=== PATIENT | female | born 1990 | race Caucasian/White ===

== ENCOUNTER 2021-02-02 16:01 | Outpatient (CLI) | payer OTHER, SELFPAY ==
--- NOTE | ~2021-02-02 | XR_ITS ---
XR chest 2V DATE: 02/02/2021 16:27 INDICATION: Occasional chest discomfort TECHNIQUE: PA and lateral views COMPARISON: None FINDINGS: Normal heart size. No hilar or mediastinal enlargement. No pulmonary infiltrate or consoli dation, pulmonary vascular congestion or pleural effusion or pneumothorax. IMPRESSION: Negative Reviewed, dictated and finalized at location B. IMPRESSION: Negative
== END 2021-02-02 16:02 | disposition home or self-care (01) ==
LOC: ANHIMG 16:09
PROVIDERS: PCP Emergency Medicine; Visit Provider Emergency Medicine
DX: Z72.0 Tobacco use (principal)
CPT/HCPCS: 71046

== ENCOUNTER 2022-02-22 12:21 | Outpatient (CLI) | payer OTHER, SELFPAY ==
--- NOTE | ~2022-02-22 | XR_ITS ---
XR chest 2V DATE: 02/22/2022 12:43 INDICATION: Smoking history TECHNIQUE: PA and lateral views COMPARISON: 02/02/2021 PA and lateral chest FINDINGS: Normal heart size. No hilar or mediastinal enlargement. Moderate bilateral hyperinflation. No pulmonary infiltrate or consolidation, pleural effusion or pulm onary vascular congestion or pneumothorax. Included skeletal structures are unremarkable. IMPRESSION: Moderate bilateral hyperinflation; no active cardiopulmonary disease Reviewed, dictated and finalized at location A. IMPRESSION: Moderate bilateral hyperinflation; no active cardiopulmonary diseas e
== END 2022-02-22 12:22 | disposition home or self-care (01) ==
PROVIDERS: PCP Emergency Medicine; Visit Provider Emergency Medicine
DX: Z87.891 Personal history of nicotine dependence (principal); R91.8 Other nonspecific abnormal finding of lung field
CPT/HCPCS: 71046

== ENCOUNTER 2022-03-15 13:56 | Outpatient (CLI) | payer OTHER, SELFPAY ==
--- NOTE | ~2022-03-15 | XR_ITS ---
EXAM: XR forearm RT 2V DATE: 03/15/2022 14:16 HISTORY: RIGHT ARM PAIN, HYPEREXTENDED ARM, GENERAL PAIN . COMPARISON: None available. FINDINGS: Normal mineralization. No fracture or dislocation. No lytic or blastic lesion. Joint space s are maintained. No erosion or periosteal change. Soft tissues within normal limits. IMPRESSION: Normal right forearm radiograph findings. Reviewed, dictated and finalized at location K. [employer]PL[employer]ANCE [employer]
== END 2022-03-15 13:57 | disposition home or self-care (01) ==
PROVIDERS: PCP Emergency Medicine; Visit Provider Emergency Medicine
DX: M79.631 Pain in right forearm (principal)
CPT/HCPCS: 73090

== ENCOUNTER 2022-04-05 17:17 | Emergency (ER) | payer OTHER, SELFPAY ==
[2022-04-05 17:20] VITALS: BP 102/70; PULSE 70; RESP 16; TEMP 37.5; O2SAT 100
== END 2022-04-05 18:33 | disposition left against medical advice (07) ==
LOC: ANHED 18:39
PROVIDERS: PCP Emergency Medicine
DX: K08.89 Other specified disorders of teeth and supporting structures (principal)
CPT/HCPCS: 99199

== ENCOUNTER 2022-04-08 13:02 | Emergency (ER) | payer OTHER, SELFPAY ==
[2022-04-08 13:12] VITALS: BP 93/56; PULSE 70; RESP 17; TEMP 36.6; O2SAT 99
--- NOTE | 2022-04-08 14:13 | ED.GENADULT ---
HPI - General Adult General Chief complaint: Dental/Oral Stated complaint: dental issue, on antibiotics Time Seen by Provider: 04/08/22 13:25 History of Present Illness HPI narrative: 31-year-old female presents with a left-sided facial swelling after having a tooth extraction 4 days prior to arrival. She is taking amoxicillin, ibuprofen and T3's. She noticed the swelling develop after the teeth were extracted and was concerned that it may be infected. She has called her dentist but it is very difficult to reach the oral surgeon for advice. She denies fever or drainage. Related Data Allergies Allergy/AdvReac Type Severity Reaction Status Date / Time No Known Allergies Allergy Unverified 10/09/14 13:01 Review of Systems Review of Systems: CONSTITUTIONAL: Denies fever, chills, or sweats. EYES: Denies visual changes, redness, or discharge. ENT: Denies rhinorrhea, congestion, sore throat, or otalgia. CARDIOVASCULAR: Denies chest pain, palpitations, or edema. RESPIRATORY: Denies cough or dyspnea. GASTROINTESTINAL: Denies abdominal pain, nausea, vomiting, or diarrhea. GENITOURINARY: Denies dysuria or hematuria. SKIN: Denies rash or itching. MUSCULOSKELETAL: Denies back pain, joint pain, or myalgia. NEUROLOGIC: Denies headache, numbness, or weakness. PSYCHIATRIC: Denies anxiety or depression. Exam Narrative: GENERAL: Well-appearing, well-nourished, and in no acute distress. HEAD: Normocephalic, atraumatic. Left-sided facial swelling EYES: PERRLA and EOMI. ENT: Nares clear, no rhinorrhea or epistaxis. Mucous membranes moist. Recent extraction noted at tooth #16, no fluctuance or drainage NECK: Supple. CHEST: Clear to auscultation. No respiratory distress. HEART: Regular rate and rhythm. No murmur heard. Normal peripheral pulses. ABDOMEN: Soft, nontender, nondistended, normal active bowel sounds. EXTREMITIES: Normal range of motion. No edema. SKIN: Warm, dry, no rash. NEURO: No focal deficits. Alert and oriented x3. PSYCH: Normal mood and affect. Course Vital Signs Vital signs: Vital Signs Temperature 97.8 F 04/08/22 13:12 Pulse Rate 70 04/08/22 13:12 Respiratory Rate 17 04/08/22 13:12 Blood Pressure 93/56 L 12/16/22 13:12 Pulse Oximetry 99 04/08/22 13:12 Oxygen Delivery Room Air 04/08/22 13:12 Temperature 97.8 F 04/08/22 13:12 Pulse Rate 70 04/08/22 13:12 Respiratory Rate 17 04/08/22 13:12 Blood Pressure 93/56 L 04/08/22 13:12 Pulse Oximetry 99 04/08/22 13:12 Oxygen Delivery Room Air 04/08/22 13:12 Medical Decision Making MDM Narrative Medical decision making narrative: This appears to be normal facial swelling after tooth extraction. No drainage or areas of fluctuance. No acute medical emergency warranted at this time. Vital Signs Vital Signs: Vital Signs Temperature 97.8 F 04/08/22 13:12 Pulse Rate 70 04/08/22 13:12 Respiratory Rate 17 04/08/22 13:12 Blood Pressure 93/56 L 04/08/22 13:12 Pulse Oximetry 99 04/08/22 13:12 Oxygen Delivery Room Air 04/08/22 13:12 Temperature 97.8 F 04/08/22 13:12 Pulse Rate 70 04/08/22 13:12 Respiratory Rate 17 04/08/22 13:12 Blood Pressure 93/56 L 04/08/22 13:12 Pulse Oximetry 99 04/08/22 13:12 Oxygen Delivery Room Air 04/08/22 13:12 Discharge Plan Discharge Follow-up/Referrals: Manuel Hagan MD [Primary Care Provider] - Stand Alone Forms: Work/School Release IP
== END 2022-04-08 15:33 | disposition home or self-care (01) ==
PROVIDERS: Emergency Provider Emergency Medicine; PCP Emergency Medicine
DX: K08.89 Other specified disorders of teeth and supporting structures (principal)
CPT/HCPCS: 99281

== ENCOUNTER 2022-04-24 18:36 | Emergency (ER) | payer OTHER, SELFPAY ==
[2022-04-24 19:11] VITALS: BP 102/65; PULSE 70; RESP 16; TEMP 36.4; O2SAT 100
--- NOTE | 2022-04-24 19:56 | ED.FEMALEGU ---
HPI - Female Genitourinary General Chief complaint: Urogenital-Female Stated complaint: vaginal discharge, abd pain Time Seen by Provider: 04/24/22 19:35 Source: patient Mode of arrival: ambulatory Limitations: no limitations History of Present Illness HPI Narrative: Patient is a 31-year-old female presents the ED with report of abnormal vaginal discharge. Patient reports she had unprotected oral and penetrative sexual intercourse on Monday. She states the partner smelled cheesy. Patient developed abnormal vaginal discharge yesterday described as thick, white, slimy, and malodorous. She is concerned for STDs, gonorrhea particularly as she has had this previously. Patient also reports having mild lower abdominal pain, but denies nausea, vomiting, vaginal bleeding, fevers, dysuria, hematuria. Related Data Allergies Allergy/AdvReac Type Severity Reaction Status Date / Time No Known Allergies Allergy Unverified 10/09/14 13:01 Review of Systems Review of Systems: CONSTITUTIONAL: Denies fever, chills, or sweats. CARDIOVASCULAR: Denies chest pain. RESPIRATORY: Denies dyspnea. GASTROINTESTINAL: Reports lower abdominal pain. Denies nausea, vomiting, or diarrhea. GENITOURINARY: Reports abnormal vaginal discharge. Denies vaginal bleeding, dysuria or hematuria. All systems reviewed & are unremarkable except as noted in HPI and below PMFSH Past Medical History Medical History No pertinent past medical history Surgical History Surgical History (Updated 04/24/22 @ 19:56 by Becka Smith PA-C) No pertinent past surgical history Exam Narrative: GENERAL: Well appearing, well-nourished, non-toxic, in no acute distress. HEAD: Normocephalic, atraumatic. NECK: Supple. No adenopathy, no masses. RESPIRATORY: Airway patent, respirations nonlabored. Clear to auscultation bilaterally, no rales, rhonchi, wheezing. CARDIOVASCULAR: Regular rate and rhythm without murmurs, rubs, or gallops. Radial pulses 2+ and equal bilaterally. ABDOMINAL: Soft, minimal tenderness throughout lower abdomen, nondistended, no hepatosplenomegaly. Normoactive BS. PELVIC: Normal external genitalia. Mild amount of white thick vaginal discharge, no bleeding. Normal-appearing cervix. Minimal discomfort with pelvic exam, no significant CMT. MUSCULOSKELETAL: Moves all extremities. Strength/ROM intact without gross deformities. SKIN: Warm, dry, normal color. No rashes. NEURO: A&O X3. Speech clear. Cranial nerves II-XII grossly intact. Steady gait. No ataxic movements. PSYCHIATRIC: Appropriate mood and affect. Normal interaction. Course Vital Signs Vital signs: Vital Signs Temperature 97.5 F L 04/24/22 19:11 Pulse Rate 70 04/24/22 19:11 Respiratory Rate 16 04/24/22 19:11 Blood Pressure 102/65 04/24/22 19:11 Pulse Oximetry 100 04/24/22 19:11 Oxygen Delivery Room Air 04/24/22 19:11 Temperature 97.5 F L 04/24/22 19:11 Pulse Rate 70 04/24/22 19:11 Respiratory Rate 16 04/24/22 19:11 Blood Pressure 102/65 04/24/22 19:11 Pulse Oximetry 100 04/24/22 19:11 Oxygen Delivery Room Air 04/24/22 19:11 MDM - Female Genitourinary MDM Narrative Medical decision making narrative: Patient presented to ED with report of abnormal vaginal discharge, concern for STDs, recent unprotected sex. Vital stable upon arrival. Patient in no acute distress, nontoxic-appearing. UA with many squamous cells, otherwise no significant signs of infection. Pelvic exam performed with mild amount of white vaginal discharge, no significant odor, no significant tenderness with exam. Trichomonas negative. Gonorrhea and chlamydia sent out. Patient would like to be treated prophylactically. Given ceftriaxone and first dose of Doxy in the ED. Patient initially reporting lower abdominal pain, however minimal tenderness on exam and with lack of significant CMT on pelvic exam, less suspicious for
[2022-04-24 20:46] LABS: Appearance Urine Slightly Cloudy (Clear); Bilirubin Urine Negative (Negative); Blood Urine Negative (Negative); Color Urine Yellow (Yellow); Glucose Urine UA Negative (Negative); Ketones Urine Negative (Negative); Leukocyte Esterase Ur Negative LEU/UL (Negative); Nitrate Urine Negative (Negative); Protein Urine Negative (Negative); Specific Grav Ur 1.015 (1.001-1.035); Urobilinogen Urine 0.2 mg/dL (<2.0)
[2022-04-24 20:49] LABS: Bacteria Urine Trace /hpf; Mucus Urine Rare /lpf; RBC Urine 0-2 /hpf (0-2); Squamous Epithelial Cell Urine Many /hpf (Few); WBC Urine 0-3 /hpf
[2022-04-24 20:50] LABS: Add Urine Microscopic? YES
[2022-04-24] MEDS: metroNIDAZOLE 250 MG TABLET 500 MG PO (21:14)
[2022-04-24] MEDS: DOXYCYCLINE HYCLATE 100 MG TABLET PO (21:14)
[2022-04-24] MEDS: cefTRIAXone 1 GM VIAL 0.5 GM IM (21:14)
[2022-04-24] MEDS: WATER, STERILE FOR INJECTION 10 ML VIAL XX (21:15)
== END 2022-04-24 21:52 | disposition home or self-care (01) ==
PROVIDERS: Emergency Provider Physician Assistant; PCP Emergency Medicine
DX: N89.8 Other specified noninflammatory disorders of vagina (principal); Z20.2 Contact with and (suspected) exposure to infections with a predominantly sexual mode of transmission; Z23 Encounter for immunization
CPT/HCPCS: 81001; 87070; 87491; 87591; 87808; 90471; 99284; A9270; J0696

== ENCOUNTER 2023-01-14 10:41 | Outpatient (CLI) | payer OTHER, SELFPAY ==
--- NOTE | ~2023-01-14 | XR_ITS ---
EXAMINATION: XR chest 2V 01/14/2023 11:00 INDICATION: Cough for 2 weeks PROCEDURE: 2 view chest COMPARISON: 02/23/2020 FINDINGS: The lungs are clear. The cardiomediastinal silhouette is within normal limits. There are no pleural effusions. There is no pneumothorax suspected. IMPRESSION: 1: NO ACUTE CARDIOPULMONARY DISEASE. Reviewed, dictated and finalized at location A.
[2023-01-14 12:21] LABS: Hematocrit 38.5 % (37.0-47.0); Hemoglobin 12.6 g/dL (12.0-15.0); Mean Corpuscular HGB Conc 32.7 g/dl (32-36); Mean Corpuscular Hemoglobin 32.6 pg (26-34); Mean Corpuscular Volume 99.5 fl (80-100); Mean Platelet Volume 9.8 fl (7.4-10.4); Platelet Count Result 248 k/mm3 (150-375); Red Blood Count 3.87 M/mm3 (4.2-5.4); Red Cell Distribution Width 12.5 % (11.5-14.5); White Blood Count 6.4 K/mm3 (4.5-10.0)
[2023-01-14 12:28] LABS: Appearance Urine Clear (Clear); Bilirubin Urine Negative (Negative); Blood Urine Negative (Negative); Color Urine Yellow (Yellow); Glucose Urine UA Negative (Negative); Ketones Urine Negative (Negative); Leukocyte Esterase Ur Negative LEU/UL (NEGATIVE); Nitrate Urine Negative (Negative); Protein Urine Negative (Negative); Specific Grav Ur 1.018 (1.001-1.035); Urobilinogen Urine 0.2 mg/dL (<2.0); pH Urine 6.5 (5.0-9.0)
[2023-01-14 12:32] LABS: Add Urine Microscopic? NO
[2023-01-14 12:32] LABS: Alanine Aminotransferase 22 U/L (6-35); Albumin Level 4.1 g/dL (3.5-5.1); Alkaline Phosphatase 62 U/L (38-126); Anion Gap 7 mmol/L (8-16); Aspartate Amino Transferase 28 U/L (14-36); Bilirubin,Total 0.4 mg/dL (0.2-1.3); Blood Urea Nitrogen 12 mg/dL (7-17); Calcium 8.3 mg/dL (8.4-10.2); Carbon Dioxide 28 mmol/L (22-30); Chloride 101 mmol/L (98-107); Cholesterol 205 mg/dL (0-200); Estimated Glomerular Filt Rate > 60; Glucose 80 mg/dL (65-110); HDL Direct 75 mg/dL; Sodium 136 mmol/L (137-145); Triglycerides 70 mg/dL (<150)
[2023-01-14 12:43] LABS: LDL Cholesterol Direct 107 mg/dL
[2023-01-14 13:12] LABS: HIV 1/2 Ab P24 Ag Result Negative (Negative)
[2023-01-14 13:19] LABS: Hepatitis B Surface Antigen Negative (Negative)
[2023-01-14 13:25] LABS: HAV RESULT Negative (Negative); Hepatitis B Core IgM Result Negative (Negative)
[2023-01-14 13:37] LABS: Hepatitis C Virus Antibody Negative (Negative)
[2023-01-14 13:53] LABS: Chlamydia trachomatis NOT DETECTED (NOT DETECTE); Neisseria gonorrhoeae PCR NOT DETECTED (NOT DETECTE)
[2023-01-14 13:57] LABS: MALB Creatinine Ratio < 6.4 mg/g (0-30); Microalbumin Urine Random < 6.0 mg/L (0-16.7)
[2023-01-14 15:09] LABS: Vitamin D 25 Hydroxy 35.6 ng/mL
[2023-01-14 15:09] LABS: Free T4 Free Thyroxine 0.74 ng/mL (0.78-2.19)
[2023-01-16 12:49] LABS: Rapid Plasma Reagin Non-Reactive (NonReactive)
== END 2023-01-14 10:42 | disposition home or self-care (01) ==
PROVIDERS: PCP Emergency Medicine; Visit Provider Emergency Medicine
DX: E55.9 Vitamin D deficiency, unspecified (principal); F41.9 Anxiety disorder, unspecified; E32.9 Disease of thymus, unspecified
CPT/HCPCS: 36415; 71046; 80053; 80061; 80074; 81003; 82043; 82306; 83036; 84439; 84443; 85027; 86592; 86703; 87491; 87591; G0432

== ENCOUNTER 2023-09-06 14:28 | Emergency (ER) | payer OTHER, SELFPAY ==
[2023-09-06 14:36] VITALS: BP 123/79; PULSE 98; RESP 18; TEMP 36.5; O2SAT 100
[2023-09-06] MEDS: SULFAMETHOXAZOLE/TRIMETHOPRIM 800/160 MG DS TABLET 1 TAB PO (15:33)
[2023-09-06] MEDS: LIDO 2%/EPINEPHRINE 1:100,000 20 ML VIAL 10 ML INFILTRATE (15:33)
--- NOTE | 2023-09-06 15:39 | ED.GENADULT ---
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 She last used to her left arm 5 days ago and about 3 days ago she started to notice there was swelling/ redness and pain and she is concerned that it is infected. Related Data Allergies Allergy/AdvReac Type Severity Reaction Status Date / Time No Known Allergies Allergy Verified 09/06/23 14:39 Review of Systems Review of Systems: All systems reviewed & are unremarkable except as noted in HPI and below PMFSH Past Medical History Medical History No pertinent past medical history Surgical History Surgical History (Updated 04/24/22 @ 19:56 by Becka Smith PA-C) No pertinent past surgical history Exam Narrative: GENERAL: Well-appearing, well-nourished, and in no acute distress. HEAD: Normocephalic, atraumatic. EYES: PERRLA and EOMI. ENT: Nares clear, no rhinorrhea or epistaxis. Mucous membranes moist. Oropharynx without tonsillar hypertrophy exudate or other lesions. NECK: Supple. No adenopathy or masses. No carotid bruits or JVD CHEST: Clear to auscultation. No respiratory distress. No wheezes rales or rhonchi HEART: Regular rate and rhythm. No murmur heard. Normal peripheral pulses. ABDOMEN: Soft, nontender, nondistended, normal active bowel sounds. EXTREMITIES: Normal range of motion. No edema. SKIN: abscess to inner left bend of elbow NEURO: No focal deficits. Alert and oriented x3. PSYCH: Normal mood and affect. Course Vital Signs Vital signs: Vital Signs Temperature 36.5 C 09/06/23 14:36 Pulse Rate 98 09/06/23 14:36 Respiratory Rate 18 09/06/23 14:36 Blood Pressure 123/79 09/06/23 14:36 Pulse Oximetry 100 09/06/23 14:36 Oxygen Delivery Room Air 09/06/23 14:36 Temperature 36.6 C 09/06/23 16:55 Pulse Rate 80 09/06/23 16:55 Respiratory Rate 16 09/06/23 16:55 Blood Pressure 124/78 09/06/23 16:55 Pulse Oximetry 100 09/06/23 16:55 Oxygen Delivery Room Air 09/06/23 14:36 Procedures Abscess I/D back: Date of Incision: 09/06/23 Time of Incision: 15:45 Side (if applicable): left Sedation/analgesia: none Local Anesthetic: lidocaine 2% and with epi Amount of anesthesia used (mL): 3 Technique: incised with #11 blade Irrigation: Yes Packing used?: none I&D Results: Pus and Blood Abcess I&D Additional Comments: moderate pus/ mild blood out / Area improved in size Pt tolerated well covered wtih a band-aid Medical Decision Making MDM Narrative Medical decision making narrative: patient with an abscess to her left inner elbow that started about 3 days ago Denies any fever/chills Abscess of about 2cm in diameter with + fluctuance area cleansed/ anesthetized with lidocaine w/ epi and incised wtih an 11 blade Moderate pus out pt with positive relief Will d/c home with Bactrim BID for 10 days Close follow up with PCP Strict return precautions provided. Medical Records Medical records reviewed: Yes I reviewed the external patient's medical records. Vital Signs Vital Signs: Vital Signs Temperature 36.5 C 09/06/23 14:36 Pulse Rate 98 09/06/23 14:36 Respiratory Rate 18 09/06/23 14:36 Blood Pressure 123/79 09/06/23 14:36 Pulse Oximetry 100 09/06/23 14:36 Oxygen Delivery Room Air 09/06/23 14:36 Temperature 36.6 C 09/06/23 16:55 Pulse Rate 80 09/06/23 16:55 Respiratory Rate 16 09/06/23 16:55 Blood Pressure 124/78 09/06/23 16:55 Pulse Oximetry 100 09/06/23 16:55 Oxygen Delivery Room Air 09/06/23 14:36 Vitals reviewed by me. Lab Data Lab results reviewed: Yes I reviewed the pat
[2023-09-06] MEDS: TETANUS,DIPHTHERIA,AC PERTUSSIS ADULT (0.5 ML) BOOSTRIX IM (16:50)
[2023-09-06 16:55] VITALS: BP 124/78; PULSE 80; RESP 16; TEMP 36.6; O2SAT 100
== END 2023-09-06 16:58 | disposition home or self-care (01) ==
PROVIDERS: Emergency Provider Nurse Practitioner Family; PCP Emergency Medicine
DX: L02.414 Cutaneous abscess of left upper limb (principal); Z23 Encounter for immunization
CPT/HCPCS: 10060; 90471; 90715; 99283; A9270